=== PATIENT | female | born 1990 | race African-American/Black ===

== ENCOUNTER 2016-08-28 20:52 | Emergency (ER) | payer MEDICAID, OTHER ==
[~2016-08-28] VITALS: Ht 172.7 cm; Wt 104.3 kg
[2016-08-28 21:00] VITALS: BP 168/100
--- NOTE | 2016-08-28 21:09 | NUR ---
TO ER BED 8
--- NOTE | 2016-08-28 21:20 | NUR ---
25 Y/O F W/C/O BODYACHES, LETHARGIC, SWELLING UP FOR 4 DAYS, BACK PAIN, SHE HURTS HER BACK WHILE AT WORK.NO S/S OF SWELLING NOTED AT THE MOMENT OR DISTRESS. ER MD MADE AWARE.
--- NOTE | 2016-08-28 21:22 | NUR ---
Patient being evaluated by physician at bedside.
[2016-08-28] MEDS ORDERED: HYDROmorphone PFS 2 MG/ML SYR IM ONE (21:30)
[2016-08-28] MEDS ORDERED: HYDROmorphone PFS 2 MG/ML SYR IVP ONE (21:40)
[2016-08-28 22:05] VITALS: BP 142/86
--- NOTE | 2016-08-28 22:05 | NUR ---
Patient discharged with v/s stable. Written and verbal after care instructions given and explained. Patient alert, oriented and verbalized understanding of instructions. Ambulatory with steady gait. All questions addressed prior to discharge. ID band removed. Patient advised to follow up with PMD OR RETURN TO ER IF CONDITION WORSENS. Rx of PERCOCET given. Patient educated on indication of medication including possible reaction and side effects. Opportunity to ask questions provided and answered.
== END 2016-08-28 22:05 | disposition home or self-care (01) ==
LOC: MED 20:52
DX: M79.1 Myalgia (principal); L93.2 Other local lupus erythematosus; M06.9 Rheumatoid arthritis, unspecified; Z88.8 Allergy status to other drugs, medicaments and biological substances
CPT/HCPCS: 96374; 99284; J1170

== ENCOUNTER 2016-11-01 20:26 | Emergency (ER) | payer MEDICAID, OTHER ==
[~2016-11-01] VITALS: Ht 167.6 cm; Wt 90.7 kg
[2016-11-01 20:33] VITALS: BP 146/105
--- NOTE | 2016-11-01 20:50 | NUR ---
Patient ambulated to OF.
--- NOTE | 2016-11-01 20:58 | NUR ---
KEVEN Carrera evaluating patient.
--- NOTE | 2016-11-01 21:10 | NUR ---
Patient ambulated to bed 08.
--- NOTE | 2016-11-01 21:12 | NUR ---
26 Y/O F W/C/O LEG PAIN, JOINTS PAIN AND STIFFNESS , HARD TO WALK FOR 3 DAYS. PT STATES HAS A HX OF LUPUS, SICKLE CELL DISEASE AND ASTHMA.NO S/S OF DISTRESS NOTED AT THE MOMENT.
--- NOTE | 2016-11-01 21:55 | NUR ---
Dr. England evaluating patient at bedside.
[2016-11-01 22:05] LABS: BASOPHILS # (AUTO) 0.4 K/uL (0.00-0.22); EOSINOPHILS # (AUTO) 0.5 K/uL (0-0.4); EOSINOPHILS % (AUTO) 7.5 % (0.0-4.0); HEMATOCRIT 36.5 % (36-48); HEMOGLOBIN 11.8 g/dL (12.0-16.0); LYMPHOCYTES % (AUTO) 47.2 % (20.5-51.1); MEAN CORPUSCULAR HEMOGLOBIN 29 pg (27-31); MEAN CORPUSCULAR HGB CONC 32 g/dL (33-37); MEAN CORPUSCULAR VOLUME 91 fL (80-94); MONOCYTES # (AUTO) 0.4 K/uL (0.8-1.0); MONOCYTES % (AUTO) 6.7 % (1.7-9.3); PLATELET COUNT (AUTO) 278 K/uL (140-450); RED CELL DISTRIBUTION WIDTH 12.8 % (11.6-13.7); WHITE BLOOD COUNT (AUTO) 6.3 K/uL (4.8-10.8)
[2016-11-01] MEDS ORDERED: methylPREDNISolone SS 125 MG/2 ML VIAL IVP ONE (22:05)
[2016-11-01] MEDS ORDERED: ONDANSETRON 4 MG/2 ML VIAL IVP ONE (22:05)
[2016-11-01] MEDS ORDERED: fentaNYL 0.05 MG/ML VIAL IVP ONE (22:05)
[2016-11-01] MEDS ORDERED: NACL 0.9% 1,000 ML IV ONE (22:05)
[2016-11-01 22:22] LABS: APPEARANCE,URINE HAZY (CLEAR); BILIRUBIN,URINE 1+ (NEGATIVE); BLOOD, URINE 3+ (NEGATIVE); COLOR,URINE RED (YELLOW); LEUKOCYTE ESTERASE ,URINE NEGATIVE (NEGATIVE); NITRITE, URINE NEGATIVE (NEGATIVE); PH,URINE 5.5 (5.0-9.0); PROTEIN,URINE 2+ (NEGATIVE); UGLUCOSE NEGATIVE (NEGATIVE)
[2016-11-01 22:28] LABS: ALBUMIN 3.4 g/dL (3.4-5.0); ANION GAP 10.5 (8-16); CALCIUM 8.4 mg/dL (8.5-10.1); CREATININE 0.8 mg/dL (0.6-1.3); POTASSIUM 3.5 mmol/L (3.5-5.1); TOTAL BILIRUBIN 0.1 mg/dL (0.0-1.0); TOTAL PROTEIN, SERUM 6.8 g/dL (6.4-8.2)
[2016-11-01 22:49] LABS: ICTOTEST NEGATIVE (NEGATIVE)
[2016-11-01 22:50] LABS: BACTERIA,URINE 2+ /HPF (None Seen); MUCUS,URINE 4+ /LPF (None Seen); RBC,URINE TOO NUMEROUS TO COUN /HPF (0-5)
[2016-11-01] MEDS ORDERED: LORazepam 2 MG/ML VIAL IVP ONE (22:55)
--- NOTE | 2016-11-01 23:55 | NUR ---
PT AND HER FAMILY ASKING TO SPEAK WITH NIKKY WRIGHT NOTIFIED DR AUSTIN.
--- NOTE | 2016-11-02 00:05 | NUR ---
pt asked to speek to er md dr AUSTIN 3 time. FRANK TURNER NOTIFTED DR AUSTIN.
--- NOTE | 2016-11-02 00:08 | NUR ---
PT AND HER FAMILY ASKING TO SPEAK WITH NIKKY WRIGHT NOTIFIED DR AUSTIN. PT ASKED TO HAVE HER IV OUT. IV TAKEN OUT BY NIKKY BENNETT.
--- NOTE | 2016-11-02 00:13 | NUR ---
Dr. England at bedside.
[2016-11-02 00:47] VITALS: BP 133/77
--- NOTE | 2016-11-02 00:47 | NUR ---
Patient discharged with v/s stable. Written and verbal after care instructions given and explained. Patient alert, oriented and verbalized understanding of instructions. Ambulatory with steady gait. All questions addressed prior to discharge. ID band removed. Patient advised to follow up with PMD OR RETURN TO ER IF CONDITION WORSENS. Rx of ATIVAN given. Patient educated on indication of medication including possible reaction and side effects. Opportunity to ask questions provided and answered.
== END 2016-11-02 00:47 | disposition home or self-care (01) ==
LOC: MED 20:26
DX: M25.50 Pain in unspecified joint (principal); F17.210 Nicotine dependence, cigarettes, uncomplicated; Z88.6 Allergy status to analgesic agent
CPT/HCPCS: 36415; 80053; 81001; 81025; 85025; 85651; 86140; 86886; 86900; 86901; 87040; 87086; 93005; 96361; 96374; 96375; 99285; J2060; J2405; J2930; J3010; J7030

== ENCOUNTER 2016-12-21 11:31 | Inpatient (IN) | payer OTHER ==
[~2016-12-21] VITALS: Ht 172.7 cm; Wt 91.6 kg
[2016-12-21 11:53] VITALS: BP 152/99
[2016-12-21] MEDS ORDERED: [UNRECOGNIZED DRUG - REMARK] (12:00)
[2016-12-21] MEDS ORDERED: PRED50TA2 PO (12:00)
[2016-12-21] MEDS ORDERED: NACL 0.9% 1,000 ML IV ONE (12:30)
[2016-12-21 12:57] LABS: BASOPHILS # (AUTO) 0.2 K/uL (0.00-0.22); BASOPHILS % (AUTO) 3.6 % (0.0-2.0); EOSINOPHILS # (AUTO) 0.4 K/uL (0-0.4); EOSINOPHILS % (AUTO) 5.7 % (0.0-4.0); HEMATOCRIT 36.8 % (36-48); HEMOGLOBIN 12.1 g/dL (12.0-16.0); LYMPHOCYTES # (AUTO) 1.8 K/uL (2.5-16.5); LYMPHOCYTES % (AUTO) 26.9 % (20.5-51.1); MEAN CORPUSCULAR HEMOGLOBIN 30 pg (27-31); MEAN CORPUSCULAR HGB CONC 33 g/dL (33-37); MEAN CORPUSCULAR VOLUME 91 fL (80-94); MONOCYTES # (AUTO) 0.5 K/uL (0.8-1.0); MONOCYTES % (AUTO) 7.4 % (1.7-9.3); NEUTROPHILS # (AUTO) 3.7 K/uL (1.8-7.7); NEUTROPHILS % (AUTO) 56.4 % (42.2-75.2); PLATELET COUNT (AUTO) 287 K/uL (140-450); RED BLOOD CELL COUNT(AUTO) 4.06 MIL/uL (4.20-5.40); RED CELL DISTRIBUTION WIDTH 13.4 % (11.6-13.7); WHITE BLOOD COUNT (AUTO) 6.6 K/uL (4.8-10.8)
[2016-12-21 13:12] LABS: ANION GAP 10.9 (8-16); CALCIUM 8.8 mg/dL (8.5-10.1); CARBON DIOXIDE 25.9 mmol/L (21-32); CREATININE 0.7 mg/dL (0.6-1.3); POTASSIUM 3.8 mmol/L (3.5-5.1)
[2016-12-21 13:15] LABS: PARTIAL THROMBOPLASTIN TIME 25.4 secs (22-35.6)
[2016-12-21] MEDS ORDERED: HYDROmorphone 1 MG/ML AMP IVP ONE (13:15)
[2016-12-21] MEDS ORDERED: ALBUTEROL SULFATE/IPRATROPIU 3 ML SOL IH ONE (13:15)
[2016-12-21 13:19] LABS: LACTIC ACID 1.3 mmol/L (0.4-2.0)
[2016-12-21 13:25] LABS: ALBUMIN 3.4 g/dL (3.4-5.0); TOTAL BILIRUBIN 0.2 mg/dL (0.0-1.0)
[2016-12-21] MEDS ORDERED: methylPREDNISolone SS 125 MG in WATER STERILE 2 ML IV ONE (14:20)
[2016-12-21] MEDS ORDERED: ONDANSETRON 4 MG/2 ML VIAL IVP PRN (14:55)
[2016-12-21] MEDS ORDERED: MORPHINE SULFATE 2 MG/ML SYR IVP PRN (14:55)
[2016-12-21] MEDS ORDERED: ACETAMINOPHEN 325 MG TAB PO PRN (14:55)
[2016-12-21] MEDS ORDERED: AZITHROMYCIN 500 MG in DEXTROSE 5% 250 ML IV SCH (16:00)
[2016-12-21 16:01] VITALS: BP 149/96
[2016-12-21] MEDS ORDERED: ACET-3783 PO (16:28)
[2016-12-21] MEDS ORDERED: ZOLP10TA1 PO (16:28)
[2016-12-21] MEDS ORDERED: CARI350T PO (16:28)
[2016-12-21] MEDS ORDERED: SERT100T PO (16:28)
[2016-12-21] MEDS ORDERED: CLON1TAB1 PO (16:28)
[2016-12-21] MEDS: MORPHINE SULFATE 4 MG/ML SYR IVP PRN ×2 (16:43→21:50)
[2016-12-21] MEDS ORDERED: oxyCODONE/APAP 5/325 MG 1 TAB TAB PO PRN (17:30)
[2016-12-21] MEDS ORDERED: clonazePAM 0.5 MG TAB PO PRN (17:30)
[2016-12-21] MEDS: CARISOPRODOL 350 MG TAB PO PRN (19:02)
[2016-12-21 20:00] VITALS: BP 136/78
[2016-12-21] MEDS ORDERED: methylPREDNISolone SS 40 MG in WATER STERILE 1 ML IV SCH (21:00)
[2016-12-21] MEDS ORDERED: ZOLPIDEM 10 MG TAB PO SCH (21:00)
[2016-12-21] MEDS: methylPREDNISolone SS 40 MG/ML VIAL IVP SCH (21:48)
[2016-12-21] MEDS ORDERED: clonazePAM 0.5 MG TAB PO SCH (22:40)
[2016-12-21] MEDS ORDERED: traMADol 50 MG TAB PO PRN (22:40)
[2016-12-21] MEDS: ALBUTEROL SULFATE/IPRATROPIU 3 ML SOL IH PRN (23:21)
[2016-12-21] MEDS ORDERED: CARISOPRODOL 350 MG TAB PO SCH (23:35)
[2016-12-22] VITALS: BP 132/68
[2016-12-22] MEDS: methylPREDNISolone SS 40 MG/ML VIAL IVP SCH ×2 (05:46→12:23)
[2016-12-22 06:00] VITALS: BP 160/92
[2016-12-22] MEDS: MORPHINE SULFATE 4 MG/ML SYR IVP PRN (06:05)
[2016-12-22] MEDS: ALBUTEROL SULFATE/IPRATROPIU 3 ML SOL IH PRN (07:17)
[2016-12-22 07:30] LABS: BASOPHILS # (AUTO) 0.3 K/uL (0.00-0.22); EOSINOPHILS # (AUTO) 0.2 K/uL (0-0.4); EOSINOPHILS % (AUTO) 1.2 % (0.0-4.0); HEMOGLOBIN 12.1 g/dL (12.0-16.0); LYMPHOCYTES # (AUTO) 1.2 K/uL (2.5-16.5); LYMPHOCYTES % (AUTO) 9.3 % (20.5-51.1); MEAN CORPUSCULAR HEMOGLOBIN 30 pg (27-31); MEAN CORPUSCULAR HGB CONC 34 g/dL (33-37); MEAN CORPUSCULAR VOLUME 90 fL (80-94); MONOCYTES # (AUTO) 0.5 K/uL (0.8-1.0); MONOCYTES % (AUTO) 3.6 % (1.7-9.3); NEUTROPHILS # (AUTO) 10.8 K/uL (1.8-7.7); NEUTROPHILS % (AUTO) 83.9 % (42.2-75.2); PLATELET COUNT (AUTO) 280 K/uL (140-450); RED CELL DISTRIBUTION WIDTH 12.8 % (11.6-13.7); WHITE BLOOD COUNT (AUTO) 12.9 K/uL (4.8-10.8)
[2016-12-22 08:04] LABS: ALBUMIN 3.3 g/dL (3.4-5.0); ANION GAP 13.6 (8-16); CALCIUM 8.9 mg/dL (8.5-10.1); CARBON DIOXIDE 22.2 mmol/L (21-32); CREATININE 0.7 mg/dL (0.6-1.3); POTASSIUM 3.8 mmol/L (3.5-5.1); TOTAL BILIRUBIN 0.2 mg/dL (0.0-1.0); TOTAL PROTEIN, SERUM 6.9 g/dL (6.4-8.2)
[2016-12-22] MEDS ORDERED: ENOXAPARIN 40 MG/0.4 ML SYR SUBQ SCH (09:00)
[2016-12-22] MEDS ORDERED: SERTRALINE 50 MG TAB PO SCH (09:00)
[2016-12-22] MEDS ORDERED: oxyCODONE/APAP 5/325 MG 1 TAB TAB PO PRN (09:25)
[2016-12-22] MEDS: CARISOPRODOL 350 MG TAB PO PRN (09:45)
[2016-12-22] MEDS ORDERED: clonazePAM 0.5 MG TAB PO PRN (10:47)
[2016-12-22] MEDS ORDERED: CARISOPRODOL 350 MG TAB PO PRN (10:47)
[2016-12-22] MEDS ORDERED: ACET-5629 PO (14:16)
[2016-12-22] MEDS ORDERED: CLON1TAB PO (14:19)
[2016-12-22] MEDS ORDERED: CARI350T PO (14:19)
[2016-12-22] MEDS ORDERED: PRED20TA5 PO (14:22)
[2016-12-22] MEDS ORDERED: AZIT250T8 PO (14:25)
== END 2016-12-22 14:38 | disposition home or self-care (01) | DRG 141 ==
LOC: MED 11:31 → MTU 14:56
PROVIDERS: ADMIT Hospitalist; ATTEND Hospitalist
DX: J45.901 Unspecified asthma with (acute) exacerbation (principal); M32.9 Systemic lupus erythematosus, unspecified; F41.9 Anxiety disorder, unspecified; F43.10 Post-traumatic stress disorder, unspecified; M06.9 Rheumatoid arthritis, unspecified; Z88.6 Allergy status to analgesic agent; Z88.1 Allergy status to other antibiotic agents; J45.909 Unspecified asthma, uncomplicated
CPT/HCPCS: 36415; 71010; 80053; 83605; 85025; 85610; 85730; 87040; 87081; 94640; 96374; 96375; 99285; J0456; J1170; J1650; J2270; J2405; J2920; J2930; J7030; J7060; J7620

== ENCOUNTER 2017-06-08 09:08 | Emergency (ER) | payer OTHER ==
[~2017-06-08] VITALS: Ht 172.7 cm; Wt 96.2 kg
[~2017-06-08 09:08] MED LIST: ACET-5629 PO; ACET-5636 PO; AZIT250T11 PO; CARI350T PO; CLON1TAB PO; CLON1TAB1 PO; PRED20TA5 PO; PRED50TA2 PO; SERT100T PO; ZOLP10TA1 PO; [UNRECOGNIZED DRUG - REMARK]
[2017-06-08 09:11] VITALS: BP 135/93
[2017-06-08] MEDS ORDERED: ORE25 PO (09:16)
--- NOTE | 2017-06-08 09:18 | NUR ---
Patient ambulated to bed 12
--- NOTE | 2017-06-08 09:23 | NUR ---
PATIENT PRESENTS TO ED WITH vaginal pain x 3 days, vaginal bleeding x3 months, reports just spotting hx lupus, asthma, sickle cell trait, HSV1, HTN . DENIES N/V/D; SKIN IS PINK/WARM/DRY; AAOX4 WITH EVEN AND STEADY GAIT; LUNGS CLEAR BL; HR EVEN AND REGULAR; PT DENIES ANY FEVER, CP, SOB, OR COUGH AT THIS TIME; PATIENT STATES PAIN OF 9/10 AT THIS TIME; PATIENT POSITIONED FOR COMFORT; HOB ELEVATED; BEDRAILS UP X2; BED DOWN. ER MD MADE AWARE OF PT STATUS.
--- NOTE | 2017-06-08 09:34 | NUR ---
PT ABLE TO DRINK ONE CUP OF APPLE JUICE
[2017-06-08 10:36] LABS: WHITE BLOOD COUNT (AUTO) 4.9 K/uL (4.8-10.8)
[2017-06-08 10:43] LABS: HEMATOCRIT 36.3 % (36-48); HEMOGLOBIN 12.2 g/dL (12.0-16.0); MEAN CORPUSCULAR HEMOGLOBIN 31 pg (27-31); MEAN CORPUSCULAR HGB CONC 34 g/dL (33-37); MEAN CORPUSCULAR VOLUME 91 fL (80-94); PLATELET COUNT (AUTO) 275 K/uL (140-450); RED BLOOD CELL COUNT(AUTO) 3.99 MIL/uL (4.20-5.40); RED CELL DISTRIBUTION WIDTH 13.7 % (11.6-13.7)
--- NOTE | 2017-06-08 10:45 | NUR ---
awaiting us. pt with no complaints. will continue to monitor.
[2017-06-08 10:54] LABS: EOSINOPHILS % (MANUAL) 8 % (0-4); LYMPHOCYTES % (MANUAL) 39 % (20-46); MONOCYTES % (MANUAL) 10 % (5-12)
[2017-06-08 10:59] LABS: FREE T4 (FREE THYROXINE) 0.84 ng/dL (0.76-1.46); THYROID STIMULATING HORMONE 0.52 uIU/mL (0.34-3.74)
--- NOTE | 2017-06-08 11:00 | NUR ---
pt to us via w/c accompanied by us tech
[2017-06-08] MEDS ORDERED: HYDROcodone/APAP 5/325 MG 1 TAB TAB PO ONE (11:55)
[2017-06-08] MEDS ORDERED: HYDROcodone/APAP 5/325 MG 1 TAB TAB ONE (11:57)
[2017-06-08] MEDS: IBUPROFEN 400 MG TAB PO ONE (12:01)
[2017-06-08 12:30] VITALS: BP 140/80
--- NOTE | 2017-06-08 12:30 | NUR ---
Patient discharged with v/s stable. Written and verbal after care instructions given and explained. Patient alert, oriented and verbalized understanding of instructions. Ambulatory with steady gait. All questions addressed prior to discharge. ID band removed. Patient advised to follow up with PMD. Rx of Acyclovir and Provera given. Patient educated on indication of medication including possible reaction and side effects. Opportunity to ask questions provided and answered.
== END 2017-06-08 12:30 | disposition home or self-care (01) ==
LOC: MED 09:08
DX: D25.9 Leiomyoma of uterus, unspecified (principal); N93.9 Abnormal uterine and vaginal bleeding, unspecified; J45.909 Unspecified asthma, uncomplicated; I10 Essential (primary) hypertension; Z79.899 Other long term (current) drug therapy; Z88.8 Allergy status to other drugs, medicaments and biological substances
CPT/HCPCS: 36415; 76830; 81002; 81025; 84439; 84443; 84479; 85025; 93325; 99285

== ENCOUNTER 2018-02-05 09:20 | Emergency (ER) | payer OTHER ==
[~2018-02-05] VITALS: Ht 167.6 cm; Wt 73.9 kg
[~2018-02-05 09:20] MED LIST changes: -ACET-5629 PO; -AZIT250T11 PO; -CLON1TAB PO; +ORE25 PO; -PRED50TA2 PO; -ZOLP10TA1 PO; -[UNRECOGNIZED DRUG - REMARK]
[2018-02-05 09:24] VITALS: BP 156/106
--- NOTE | 2018-02-05 09:36 | NUR ---
27 y.o [place] citizen [place] female came in to the ED due to pain from what she believes is a Lupus flare or Sickle Cell Crisis for the past 3 days. Pt is experiencing sharp, acute, aching pain throughout her intire body but is the worst in her neck, joints and feet. Pt states that this morning around 0330 she took Naproxen, Prednisone due to the s/sx. Pt also takes Cytotoxin to control her Lupus flares. Pt stated that she also feels dizzy, fatigued, chills, nauceous but denies V/D, fever. Pt states her last Lupus flare up was February 2017. s1s2 present. Lungs clear bilaterally. Pain felt on palpation of back, chest, extremities. skin is warm, dry, intact. Pts past medical hx includes: Sickle Cell Asthma Lupus
--- NOTE | 2018-02-05 09:38 | NUR ---
DR RYAN EVALUATING AT BEDSIDE
[2018-02-05] MEDS ORDERED: methylPREDNISolone SS 125 MG in WATER STERILE 2 ML IM ONE (09:45)
[2018-02-05] MEDS ORDERED: MORPHINE SULFATE 4 MG/ML SYR IM ONE (09:45)
[2018-02-05 10:24] VITALS: BP 136/67
--- NOTE | 2018-02-05 10:25 | NUR ---
D/c pt home, called [facility] for a ride. Pt states her pain has reduced to a 5/10. Educated pt on new RX of [place] and Motrin, calling Rhumatologist for follow up, emergency s/sx of when to return to ED, call 911, call PCP. Answered all pt question and she denied any more questions at this time. Pt ambulated to the exit.
== END 2018-02-05 10:25 | disposition home or self-care (01) ==
LOC: MED 09:20
DX: M79.1 Myalgia (principal); R11.0 Nausea; J45.909 Unspecified asthma, uncomplicated; Z88.6 Allergy status to analgesic agent; Z79.899 Other long term (current) drug therapy
CPT/HCPCS: 96372; 99284; J2270; J2930

== ENCOUNTER 2018-07-18 17:00 | Emergency (ER) | payer SELFPAY ==
[~2018-07-18] VITALS: Ht 165.1 cm; Wt 73.5 kg
[2018-07-18 17:11] VITALS: BP 152/108
--- NOTE | 2018-07-18 17:46 | NUR ---
PT TAKEN TO BED 06 BY WHEELCHAIR.
--- NOTE | 2018-07-18 17:55 | NUR ---
BIB [facility] FROM HOME WITH C/O NECK TO LOWER BACK PAIN 02/21 AFTER HAVING AN ARGUMENT WITH HER SISTER. DENIES PHYSICAL TRAUMA. PER PT PAIN DUE TO HER HX OF LUPUS "FLARE UP" PATIENT POSITIONED FOR COMFORT; HOB ELEVATED; BEDRAILS UP X2; BED DOWN. ER MD MADE AWARE OF PT STATUS.
--- NOTE | 2018-07-18 19:10 | NUR ---
Pt report given to MANJU SHER. Transfer of care at this time.
--- NOTE | 2018-07-18 19:30 | NUR ---
ER AT BEDSIDE
--- NOTE | 2018-07-18 19:30 | NUR ---
RECEIVED REPORT FROM AM NURSE. PT LAYING IN BED, RR EVEN AND UNLABORED. PT C/O LUPUS EXACERBATION, C/O NECK AND BACK PAIN.
[2018-07-18] MEDS ORDERED: fentaNYL 0.05 MG/ML VIAL IM ONE (20:00)
[2018-07-18] MEDS ORDERED: ONDANSETRON 4 MG ODT PO ONE (20:00)
--- NOTE | 2018-07-18 20:11 | NUR ---
LATE NOTE ENTRY: FENTANYL 50 MCQ GIVEN. FENTANYL 50 MCQ WASTED.
[2018-07-18 21:01] LABS: BASOPHILS % (AUTO) 0.8 % (0.0-2.0); EOSINOPHILS # (AUTO) 0.6 K/uL (0-0.4); EOSINOPHILS % (AUTO) 11.2 % (0.0-4.0); HEMATOCRIT 35.5 % (36-48); HEMOGLOBIN 11.6 g/dL (12.0-16.0); LYMPHOCYTES # (AUTO) 3.2 K/uL (2.5-16.5); LYMPHOCYTES % (AUTO) 55.4 % (20.5-51.1); MEAN CORPUSCULAR HEMOGLOBIN 31 pg (27-31); MEAN CORPUSCULAR HGB CONC 33 g/dL (33-37); MEAN CORPUSCULAR VOLUME 93.6 fL (80-94); MONOCYTES # (AUTO) 0.5 K/uL (0.8-1.0); MONOCYTES % (AUTO) 8.2 % (1.7-9.3); NEUTROPHILS # (AUTO) 1.4 K/uL (1.8-7.7); NEUTROPHILS % (AUTO) 24.4 % (42.2-75.2); PLATELET COUNT (AUTO) 243 K/uL (140-450); RED BLOOD CELL COUNT(AUTO) 3.79 MIL/uL (4.20-5.40); RED CELL DISTRIBUTION WIDTH 13.9 % (11.6-13.7); WHITE BLOOD COUNT (AUTO) 5.7 K/uL (4.8-10.8)
[2018-07-18 21:15] LABS: ANION GAP 6.3 (8-16); CARBON DIOXIDE 31.3 mmol/L (21-32); CREATININE 0.7 mg/dL (0.6-1.3); POTASSIUM 3.6 mmol/L (3.5-5.1)
[2018-07-18 21:22] LABS: ALBUMIN 3.8 g/dL (3.4-5.0); TOTAL BILIRUBIN 0.3 mg/dL (0.0-1.0)
[2018-07-18] MEDS ORDERED: LORazepam 1 MG TAB PO ONE (21:40)
[2018-07-18 21:56] VITALS: BP 146/106
--- NOTE | 2018-07-18 21:56 | NUR ---
Patient discharged with v/s stable. Written and verbal after care instructions given and explained. Patient alert, oriented and verbalized understanding of instructions. Ambulatory with steady gait. All questions addressed prior to discharge. ID band removed. Patient advised to follow up with PMD. Rx of WU RAINEY given. Patient educated on indication of medication including possible reaction and side effects. Opportunity to ask questions provided and answered.
== END 2018-07-18 21:56 | disposition home or self-care (01) ==
LOC: MED 17:00
DX: S13.9XXA Sprain of joints and ligaments of unspecified parts of neck, initial encounter (principal); K59.00 Constipation, unspecified; M25.569 Pain in unspecified knee; R55 Syncope and collapse; M54.9 Dorsalgia, unspecified; J45.909 Unspecified asthma, uncomplicated; Z79.899 Other long term (current) drug therapy; Z88.6 Allergy status to analgesic agent; W51.XXXA Accidental striking against or bumped into by another person, initial encounter; Y93.89 Activity, other specified; Y92.89 Other specified places as the place of occurrence of the external cause; Y99.8 Other external cause status
CPT/HCPCS: 36415; 70450; 72125; 74018; 80053; 81025; 85025; 96372; 99284; J3010; Q0162